=== PATIENT | male | born 1995 | race Caucasian/White ===

== ENCOUNTER 2017-01-08 11:49 | Emergency (ER) | payer SELFPAY ==
[2017-01-08] MEDS ORDERED: Benzocaine 20% Topical Spray UD MUCMEM ONE (12:04)
[2017-01-08] MEDS ORDERED: Lidocaine 2% Viscous Solution 15 ML Cup PO ONE (12:04)
--- NOTE | 2017-01-08 12:09 | EDM.PDOC ---
ED HPI GENERAL MEDICAL PROBLEM - General Chief Complaint: ENT Problem Stated Complaint: ORAL PAIN Time Seen by Provider: 01/08/17 11:58 - History of Present Illness INITIAL COMMENTS - FREE TEXT/NARRATIVE: HISTORY AND PHYSICAL: History of present illness: The patient is a 20-year-old male who presents with complaints of pain to his left lower molar that has been ongoing for last 1 week. The patient says he had a root canal in the past which failed and he has had distortion of the tooth/ breakage of the tooth in the past but it has not caused pain. It has recently started to cause him pain. He has no swelling in the area and is able to eat and drink. Patient does smoke cigarettes which he says the pain worse. He has no facial swelling and no other systemic complaints such as fever chills sore throat nausea or vomiting. 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 He has not connected with a local dentist. Review of systems: As per history of present illness and below otherwise all systems reviewed and negative. Past medical history: As per history of present illness and as reviewed below otherwise noncontributory. Surgical history: As per history of present illness and as reviewed below otherwise noncontributory. Social history: No reported history of drug or alcohol abuse. Family history: As per history of present illness and as reviewed below otherwise noncontributory. Physical exam: Gen.: Well-developed well-nourished man who is nontoxic and speaking clearly and easily in the ED. Vital signs have been reviewed by me HEENT: Atraumatic, normocephalic, pupils reactive, negative for conjunctival pallor or scleral icterus, mucous membranes moist, throat clear, neck supple, nontender, trachea midline. There is no cervical adenopathy or nuchal rigidity and no visible facial swelling. There is a dental caries/ental fracture seen at tooth #17 with tenderness to tap but no soft tissue swelling of the surrounding gum. The other teeth show color changes consistent with enamel problems and some gingival changes but otherwise within normal limits. Lungs: Clear to auscultation, breath sounds equal bilaterally, chest nontender. Heart: S1S2, regular rate and rhythm no overt murmurs Abdomen: Soft, nondistended, nontender. NABS Genitourinary: Deferred. Rectal: Deferred. Extremities: Atraumatic, negative for cords or calf pain. Neurovascular unremarkable. Neuro: Awake, alert, oriented. Cranial nerves II through XII unremarkable. Cerebellum unremarkable. Motor and sensory unremarkable throughout. Exam nonfocal. Diagnostics: [] Therapeutics: Dental balls Impression: Dental pain/dental carry Definitive disposition and diagnosis as appropriate pending reevaluation and review of above. Left Lower Oral/Mouth Pain Score (Numeric/FACES): 7 - Related Data Allergies Allergy/AdvReac Type Severity Reaction Status Date / Time diphenhydramine Allergy Drowsiness Verified 01/08/17 11:55 [From Benadryl] iodine Allergy Vomiting Verified 01/08/17 11:56 Home Meds: Home Meds . [No Known Home Meds] 01/08/17 [History] ED ROS GENERAL - Review of Systems Review Of Systems: ROS reveals no pertinent complaints other than HPI. ED EXAM, GENERAL - Physical Exam Exam: See Below (See dictation) Course - Vital Signs Last Recorded V/S: Last Vital Signs Temp 36.4 C 01/08/17 11:56 Pulse 78 01/08/17 11:56 Resp 18 01/08/17 11:56 BP 134/80 01/08/17 11:56 Pulse Ox 98 01/08/17 11:56 - Orders/Labs/Meds Orders: Active Orders 24 hr Category Date Time Status Benzocaine [Hurricaine One 20%] Med 01/08/17 12:04 Once 2 each MUCMEM ONETIME ONE Lidocaine 2% [Xylocaine 2% Viscous] Med 01/08/17 12:04 Once 15 ml PO ONETIME ONE Departure - Departure Time of Disposition: 12:07 Disposition: Home, Self-Care 01 Condition: Good Clinical Impression: Toothache, Dental caries - Discharge Information Referrals: PCP,None [Primary Care Provider] - Additional Instructions: The following information is given to patients seen in the emergency department who are being discharged to home. This information is to outline your options for follow-up care. We provide all patients seen in our emergency department with a follow-up referral. The need for follow-up, as well as the timing and circumstances, are variable depending upon the specifics of your emergency department visit. If you don't have a primary care physician on staff, we will provide you with a referral. We always advise you to contact your personal physician following an emergency department visit to inform them of the circumstance of the visit and for follow-up with them and/or the need for any referrals to a consulting specialist. The emergency department will also refer you to a specialist when appropriate. This referral assures that you have the opportunity for followup care with a specialist. All of these measure are taken in an effort to provide you with optimal care, which includes your followup. Under all circumstances we always encourage you to contact your private physician who remains a resource for coordinating your care. When calling for followup care, please make the office aware that this follow-up is from your recent emergency room visit. If for any reason you are refused follow-up, please contact the [facility] emergency department at and ask to speak to the emergency department charge nurse. [facility] Primary care- Internal Medicine and Family [address] [address] Use ice to face if any swelling develops and use [id number] Tylenol or ibuprofen for pain. Please use the dental balls you have been given today to help with the pain as shown by the nurse. Please take the antibiotics you have been given until they are finished, amoxicillin. Please connect with a local dentist for definitive care and treatment and return to ER as needed and as discussed - My Orders Last 24 Hours: My Active Orders 01/08/17 12:04 Benzocaine [Hurricaine One 20%] 2 each MUCMEM ONETIME ONE Lidocaine 2% [Xylocaine 2% Viscous] 15 ml PO ONETIME ONE - Assessment/Plan Last 24 Hours: My Active Orders 01/08/17 12:04 Benzocaine [Hurricaine One 20%] 2 each MUCMEM ONETIME ONE Lidocaine 2% [Xylocaine 2% Viscous] 15 ml PO ONETIME ONE
[2017-01-08 12:30] VITALS: BP 136/84
== END 2017-01-08 12:25 | disposition home or self-care (01) ==
LOC: EDBD 11:49 → MW.ED 11:49
DX: K02.9 Dental caries, unspecified (principal); K03.81 Cracked tooth; Z88.8 Allergy status to other drugs, medicaments and biological substances
CPT/HCPCS: 99283; A9270; 99282